=== PATIENT | male | born 2000 | race Caucasian/White ===

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

== ENCOUNTER 2022-12-20 06:26 | Emergency (ER) | payer BC ==
[~2022-12-20] VITALS: Ht 187.9 cm; Wt 122.5 kg
[~2022-12-20 06:26] MED LIST changes: +Motrin,Rufen800 MG PO
== END 2022-12-20 07:33 | disposition home or self-care (01) ==
LOC: ED 06:26
DX: J06.9 Acute upper respiratory infection, unspecified (principal); R05.9 Cough, unspecified; Z20.822 Contact with and (suspected) exposure to COVID-19

== ENCOUNTER 2023-03-26 18:13 | Emergency (ER) | payer BC ==
[~2023-03-26] VITALS: Ht 187.9 cm; Wt 108.9 kg
[2023-03-26 19:21] LABS: BASO % 0.3 % (0.0-1.0); EOS # 0.2 10*3/uL (0.0-0.4); EOS % 1.7 % (1.0-4.0); HEMATOCRIT 39.3 % (42.0-52.0); LYMPH # 3.2 10*3/uL (1.3-4.4); LYMPH % 37.4 % (27.0-41.0); MEAN CELL VOLUME 86.6 fl (80.0-94.0); MEAN CORPUSCULAR HGB 29.5 pg (27.0-31.0); MEAN CORPUSCULAR HGB CONC 34.1 g/dl (33.0-37.0); MEAN PLATELET VOLUME 10.1 fl (9.6-12.3); MONO # 0.6 10*3/uL (0.1-1.0); MONO % 6.8 % (3.0-9.0); NEUT # 4.6 10*3/uL (2.3-7.9); NEUT % 53.6 % (47.0-73.0); PLATELET COUNT AUTOMATED 290 10*3/uL (130-400); RED BLOOD COUNT 4.54 10*6/uL (4.50-5.90); RED CELL DISTRI WIDTH 12.6 % (0-14.5); WHITE BLOOD COUNT 8.6 10*3/uL (4.8-10.8)
[2023-03-26 19:49] LABS: ALKALINE PHOSPHATASE 70 U/L (46-116); BUN 12 mg/dl (9-23); CHLORIDE 107 mmol/L (98-107); LIPASE 36 U/L (12-53); POTASSIUM 3.8 mmol/L (3.4-5.1); SGPT/ALT 41 U/L (10-49); TOTAL PROTEIN 7.2 gm/dL (6.0-8.0)
[2023-03-26 21:07] LABS: BILIRUBIN Negative (Negative); BLOOD Negative (Negative); CLARITY Cloudy (Clear); COLOR Yellow (Yellow); GLUCOSE Negative (Negative); KETONE Negative (Negative); LEUKO ESTERASE Negative (Negative); NITRITE Negative (Negative); SPECIFIC GRAVITY >= 1.030 (1.001-1.030)
[2023-03-26 21:17] LABS: BACTERIA TRACE; EPITHELIAL CELLS 0-2; RBC 0-2 rbc/hpf (0-2); WBC 0-2 wbc/hpf (0-5)
== END 2023-03-26 22:00 | disposition admitted as inpatient to this hospital (09) ==
LOC: ED 18:13
PROVIDERS: Nurse Practitioner
DX: S39.011A Strain of muscle, fascia and tendon of abdomen, initial encounter (principal); X50.0XXA Overexertion from strenuous movement or load, initial encounter; Y93.89 Activity, other specified; Y92.89 Other specified places as the place of occurrence of the external cause; Y99.8 Other external cause status

== ENCOUNTER 2023-10-04 19:45 | Emergency (ER) | payer BC ==
[~2023-10-04] VITALS: Ht 187.9 cm; Wt 111.1 kg
[2023-10-04 20:44] LABS: BASO # 0.1 10*3/uL (0.0-0.1); BASO % 0.5 % (0.0-1.0); EOS # 0.4 10*3/uL (0.0-0.4); EOS % 4.2 % (1.0-4.0); HEMATOCRIT 41.6 % (42.0-52.0); LYMPH # 3.2 10*3/uL (1.3-4.4); LYMPH % 31.4 % (27.0-41.0); MEAN CELL VOLUME 86.8 fl (80.0-94.0); MEAN CORPUSCULAR HGB CONC 33.4 g/dl (33.0-37.0); MEAN PLATELET VOLUME 9.5 fl (9.6-12.3); MONO # 0.9 10*3/uL (0.1-1.0); MONO % 9.2 % (3.0-9.0); NEUT # 5.6 10*3/uL (2.3-7.9); NEUT % 54.5 % (47.0-73.0); PLATELET COUNT AUTOMATED 283 10*3/uL (130-400); RED BLOOD COUNT 4.79 10*6/uL (4.50-5.90); RED CELL DISTRI WIDTH 12.2 % (0-14.5); WHITE BLOOD COUNT 10.3 10*3/uL (4.8-10.8)
[2023-10-04 21:15] LABS: ALKALINE PHOSPHATASE 79 U/L (46-116); BUN 12 mg/dl (9-23); CHLORIDE 104 mmol/L (98-107); CPK 826 U/L (34-171); POTASSIUM 4.1 mmol/L (3.4-5.1); SGPT/ALT 60 U/L (5-49); TOTAL PROTEIN 7.3 gm/dL (6.0-8.0)
[2023-10-04 21:30] LABS: BILIRUBIN Negative (Negative); BLOOD Negative (Negative); CLARITY Clear (Clear); COLOR Yellow (Yellow); GLUCOSE Negative (Negative); KETONE Negative (Negative); LEUKO ESTERASE Negative (Negative); NITRITE Negative (Negative); SPECIFIC GRAVITY 1.025 (1.001-1.030)
[2023-10-04 21:43] LABS: EPITHELIAL CELLS 0-2
[2023-10-04] MEDS ORDERED: CEPHALEXIN500 M1 PO (21:55)
== END 2023-10-04 23:10 | disposition home or self-care (01) ==
LOC: ED 19:45
PROVIDERS: Internal Medicine
DX: T23.172A Burn of first degree of left wrist, initial encounter (principal); T23.171A Burn of first degree of right wrist, initial encounter; T31.0 Burns involving less than 10% of body surface; X08.8XXA Exposure to other specified smoke, fire and flames, initial encounter; Y93.89 Activity, other specified; Y92.89 Other specified places as the place of occurrence of the external cause; Y99.0 Civilian activity done for income or pay

== ENCOUNTER 2023-11-27 14:06 | Emergency (ER) | payer BC ==
[~2023-11-27] VITALS: Ht 187.9 cm; Wt 113.4 kg
[~2023-11-27 14:06] MED LIST changes: +CEPHALEXIN500 M1 PO
== END 2023-11-27 15:10 | disposition left against medical advice (07) ==
LOC: ED 14:06
DX: J02.9 Acute pharyngitis, unspecified (principal); H92.01 Otalgia, right ear; Z53.21 Procedure and treatment not carried out due to patient leaving prior to being seen by health care provider

== ENCOUNTER 2024-04-20 10:00 | Emergency (ER) | payer BC ==
[~2024-04-20] VITALS: Ht 187.9 cm; Wt 117.9 kg
[2024-04-20] MEDS ORDERED: Lidocaine Hydrochloride 15 ML UDC PO STA (11:32)
[2024-04-20] MEDS ORDERED: MG-AL HYDROXIDE/SIMETICONE 30 ML UDC PO STA (11:32)
[2024-04-20] MEDS ORDERED: Dicyclomine Hydrochloride 20 MG/10 ML OSYR PO STA (11:32)
[2024-04-20] MEDS ORDERED: Metoclopramide Hydrochloride 10 MG/2 ML AMP IV ONE (11:35)
[2024-04-20] MEDS ORDERED: diphenhydrAMINE hydrochloride 50 MG/ML VIAL IV ONE (11:35)
[2024-04-20] MEDS ORDERED: SODIUM CHLORIDE 0.9% 1,000 ML IV ONE (11:35)
[2024-04-20] MEDS ORDERED: Ketorolac Tromethamine 15 MG/ML VIAL IV ONE (11:35)
[2024-04-20 12:02] LABS: HEMATOCRIT 38.3 % (42.0-52.0); MEAN CELL VOLUME 83.3 fl (80.0-94.0); MEAN CORPUSCULAR HGB 28.9 pg (27.0-31.0); MEAN CORPUSCULAR HGB CONC 34.7 g/dl (33.0-37.0); MEAN PLATELET VOLUME 9.8 fl (9.6-12.3); PLATELET COUNT AUTOMATED 207 10*3/uL (130-400); RED CELL DISTRI WIDTH 12.7 % (0-14.5); WHITE BLOOD COUNT 6.6 10*3/uL (4.8-10.8)
[2024-04-20 12:05] LABS: MANUAL DIFF REFLEX YES
[2024-04-20 12:17] LABS: ALKALINE PHOSPHATASE 82 U/L (46-116); BUN 7 mg/dl (9-23); CHLORIDE 102 mmol/L (98-107); LIPASE 27 U/L (12-53); POTASSIUM 4.3 mmol/L (3.4-5.1); SGPT/ALT 76 U/L (5-49); TOTAL PROTEIN 7.2 gm/dL (6.0-8.0)
[2024-04-20 12:32] LABS: ATYPICAL LYMPHS 2 % (0-0); TOTAL CELLS COUNTED 99 #CELLS
[2024-04-20 12:33] LABS: PLATELET SUFFICIENCY NORMAL (NORMAL)
[2024-04-20] MEDS ORDERED: PROTONIX40 MG PO (12:55)
== END 2024-04-20 13:11 | disposition home or self-care (01) ==
LOC: ED 10:00
PROVIDERS: Physician Assistant Medical
DX: G44.209 Tension-type headache, unspecified, not intractable (principal); K21.9 Gastro-esophageal reflux disease without esophagitis; F17.290 Nicotine dependence, other tobacco product, uncomplicated

== ENCOUNTER → 2024-04-29 | Outpatient (CLI) | payer BC ==
[~2024-04-29] MED LIST changes: +PROTONIX40 MG PO
[2024-04-29 16:55] LABS: ALKALINE PHOSPHATASE 83 U/L (46-116); BUN 8 mg/dl (9-23); CHLORIDE 102 mmol/L (98-107); POTASSIUM 3.8 mmol/L (3.4-5.1); SGPT/ALT 130 U/L (5-49); TOTAL PROTEIN 7.2 gm/dL (6.0-8.0)
[2024-04-30 07:07] LABS: HBSAG Negative (Negative); HEP B CORE AB, IGM Negative (Negative); HEPATITIS C ANTIBODY Non Reactive (Non Reactive)
[2024-04-30 09:09] LABS: ALPHA-1-ANTITRYPSIN, SERUM 218 mg/dL (95-164)
== END | disposition home or self-care (01) ==
LOC: LAB 15:56
PROVIDERS: ATTEND Internal Medicine
DX: K21.9 Gastro-esophageal reflux disease without esophagitis (principal); R74.01 Elevation of levels of liver transaminase levels

== ENCOUNTER 2024-10-13 16:11 | Emergency (ER) | payer BC ==
[~2024-10-13] VITALS: Ht 187.9 cm; Wt 113.4 kg
[2024-10-13] MEDS ORDERED: VIBRAMYCIN100 MG PO (16:57)
[2024-10-13] MEDS ORDERED: Doxycycline Hyclate 100 MG CAP PO ONE (17:00)
== END 2024-10-13 17:12 | disposition home or self-care (01) ==
LOC: ED 16:11
DX: L05.01 Pilonidal cyst with abscess (principal)

== ENCOUNTER → 2024-10-26 | Day surgery (SDC) | payer BC ==
[~2024-10-26] VITALS: Ht 190.5 cm; Wt 108.9 kg
[~2024-10-26] MED LIST changes: +COLACE100 MG PO; +DEXMEDETOMIDINE HCL 200 MCG/2 ML VIAL IV ONE; +Dexamethasone Sodium Phospha 4 MG/ML VIAL IV ONE; +Lactated Ringer's Solution 0 ML IV ONE; +Lactated Ringer's Solution 1,000 ML IV ONE; +Lidocaine Hydrochloride 30 ML VIAL ONE; +Lidocaine Hydrochloride 5 ML VIAL IV ONE; +METRONIDAZOLE 100 ML IV ONE; +Midazolam Hydrochloride 2 MG/2 ML VIAL IV ONE; +Ondansetron Hydrochloride 4 MG/2 ML VIAL IV ONE; +PERCOCET 5-3251 EACH PO; +PROPOFOL 200 MG/20 ML VIAL IV ONE; +SEVOFLURANE 250 ML BOT INH ONE; +SODIUM CHLORIDE 0.9% 100 ML IV ONE; +Succinylcholine Chloride 200 MG/10 ML SYRINGE IV ONE; +VIBRAMYCIN100 MG PO; +ceFAZolin sodium/sodium chlor 1 GM/10 ML SYR IV ONE; +ceFAZolin sodium/sodium chlor 20 ML IV ONE; +fentaNYL CITRATE 100 MCG/2 ML VIAL IV ONE
[2024-10-26 08:20] VITALS: BP 138/77
[2024-10-26 10:04] VITALS: BP 123/72
[2024-10-26 10:19] VITALS: BP 131/91
[2024-10-26 10:34] VITALS: BP 141/86
[2024-10-26 10:49] VITALS: BP 141/77
[2024-10-26 11:04] VITALS: BP 130/79
== END | disposition home or self-care (01) ==
LOC: SDC 10-22 08:00
PROVIDERS: ATTEND Surgery
DX: L05.91 Pilonidal cyst without abscess (principal); K21.9 Gastro-esophageal reflux disease without esophagitis; F17.210 Nicotine dependence, cigarettes, uncomplicated; F15.90 Other stimulant use, unspecified, uncomplicated; Z79.899 Other long term (current) drug therapy